=== PATIENT | female | born 1990 | race Caucasian/White ===

== ENCOUNTER 2017-07-19 20:56 | Inpatient (IN) | payer OTHER ==
[~2017-07-19] VITALS: Ht 162.6 cm; Wt 101.2 kg
[~2017-07-19 20:56] MED LIST: AMOXICILLIN500 M1 PO; DEPO IM; FLEXERIL10 MG PO; MOTRIN600 MG PO; Motrin PO; NORCO 5/3251 TABLET PO; NORCO 7.5/321 TABLET PO; PERCOCET 5/31 TABLET PO; PRENATAL TABLE1 EAC3 PO; ROBITUSSIN100 MG/5 M PO; ROXICODONE5 MG PO; TYLENOL WITH C1 EACH PO; VALIUM5 MG PO; ZOFRAN4 MG PO
[2017-07-19 23:36] LABS: HEMATOCRIT 44.8 % (36.0-46.0); HEMOGLOBIN 15.5 G/DL (11.9-15.5); MCH 30.8 PG (29.0-34.0); MCHC 34.6 G/DL (30.0-36.0); MCV 89.1 FL (83-99); PLATELET COUNT 284 K/uL (156-360); RBC DIS.WIDTH-SD 39.3 % (39-53); RED BLOOD COUNT 5.03 M/uL (3.80-5.20); WHITE BLOOD COUNT 14.1 K/uL (4.1-10.2)
[2017-07-19 23:47] LABS: ALBUMIN 4.3 g/dL (3.2-4.8); CHLORIDE 105 mEq/L (99-109); POTASSIUM 3.9 mEq/L (3.7-5.4); SODIUM 137 mEq/L (136-147)
[2017-07-19 23:49] LABS: GLUCOSE 113 mg/dL (70-99); TOTAL PROTEIN 7.6 g/dL (6.4-8.3)
[2017-07-19 23:51] LABS: TOTAL BILIRUBIN 2.4 mg/dL (0.0-1.0)
[2017-07-19 23:53] LABS: ALKALINE PHOSPHATASE 200 IU/L (3-129); CREATININE 0.7 mg/dL (0.6-1.3); GFR ESTIMATE (CALCULATED) > 59 mL/min/
[2017-07-19 23:54] LABS: UREA NITROGEN (BUN) 11 mg/dL (9-23)
[2017-07-19 23:55] LABS: AST (GOT) 340 IU/L (2-34)
[2017-07-19 23:56] LABS: ALT (GPT) 608 IU/L (3-49)
[2017-07-20 00:18] LABS: LIPASE 2275 U/L (1.0-51.0)
[2017-07-20 01:08] LABS: QUANTITATIVE HCG < 4.0 MIU/ML
[2017-07-20] MEDS ORDERED: MIDOL COMPLETE1 EACH PO (01:24)
[2017-07-20 01:27] LABS: APPEARANCE CLEAR ((CLEAR)); BILIRUBIN NEGATIVE; BLOOD SMALL; COLOR DK YELLOW ((YELLOW)); GLUCOSE (STRIP) NEGATIVE; KETONES 80; LEUKOCYTES NEGATIVE; NITRITE NEGATIVE; PROTEIN (STRIP) NEGATIVE
[2017-07-20 01:34] LABS: BACTERIA NONE SEEN /HPF; EPITHELIAL CELLS 2+ /HPF; MUCUS 1+ /LPF; UCUL ADDED? NO; WHITE BLOOD CELLS 0-5 /HPF (0-5)
[2017-07-20 01:44] LABS: SPECIFIC GRAVITY 1.075 (1.000-1.030)
[2017-07-20 02:31] LABS: ACETAMINOPHEN (TYLENOL) < 10 mcg/mL (10-30)
[2017-07-20 02:58] LABS: AMYLASE 443 IU/L (1-118)
[2017-07-20 05:49] VITALS: BP 112/63
[2017-07-20 06:52] LABS: HEMATOCRIT 42.8 % (36.0-46.0); HEMOGLOBIN 14.4 G/DL (11.9-15.5); MCH 30.2 PG (29.0-34.0); MCHC 33.6 G/DL (30.0-36.0); MCV 89.7 FL (83-99); PLATELET COUNT 284 K/uL (156-360); RBC DIS.WIDTH-CV 12.1 % (11.8-14.6); RBC DIS.WIDTH-SD 39.9 % (39-53); RED BLOOD COUNT 4.77 M/uL (3.80-5.20); WHITE BLOOD COUNT 10.8 K/uL (4.1-10.2)
[2017-07-20 07:28] VITALS: BP 114/58
[2017-07-20 15:03] LABS: BASOPHIL (%) 0.2 % (0-1); EOSINOPHIL (%) 0.2 % (0-5); HEMATOCRIT 44.2 % (36.0-46.0); HEMOGLOBIN 14.9 G/DL (11.9-15.5); IMMATURE GRANULOCYTE (%) 0.4 % (0.0-0.7); LYMPHOCYTE (%) 20.6 % (15-42); LYMPHOCYTE COUNT 2.1 K/uL (1.0-2.8); MCH 30.5 PG (29.0-34.0); MCHC 33.7 G/DL (30.0-36.0); MCV 90.6 FL (83-99); MONOCYTE (%) 4.6 % (3-12); MONOCYTE COUNT 0.5 K/uL (0-0.8); NEUTROPHIL COUNT 7.6 K/uL (1.8-6.4); PLATELET COUNT 256 K/uL (156-360); RBC DIS.WIDTH-CV 12.5 % (11.8-14.6); RBC DIS.WIDTH-SD 41.4 % (39-53); RED BLOOD COUNT 4.88 M/uL (3.80-5.20); WHITE BLOOD COUNT 10.2 K/uL (4.1-10.2)
[2017-07-20 15:16] LABS: ALBUMIN 3.5 G/DL (3.2-4.8); CHLORIDE 106 MEQ/L (99-109); POTASSIUM 3.8 MEQ/L (3.7-5.4); SODIUM 137 MEQ/L (136-147)
[2017-07-20 15:32] LABS: ALKALINE PHOSPHATASE 129 IU/L (3-129); ALT (GPT) 292 IU/L (3-49); AST (GOT) 103 IU/L (2-34); CREATININE 0.6 MG/DL (0.6-1.3); GFR ESTIMATE (CALCULATED) > 59 mL/min/; GLUCOSE 96 mg/dL (70-99); TOTAL PROTEIN 6.2 G/DL (6.4-8.3); UREA NITROGEN (BUN) 10 mg/dL (9-23)
[2017-07-20 15:41] VITALS: BP 120/57
[2017-07-20 16:28] LABS: LIPASE 733 U/L (1.0-51.0)
[2017-07-20 20:00] VITALS: BP 101/50
[2017-07-20 23:21] VITALS: BP 107/52
[2017-07-21 04:04] VITALS: BP 113/52
[2017-07-21 06:25] LABS: HEMATOCRIT 39.4 % (36.0-46.0); HEMOGLOBIN 13.3 G/DL (11.9-15.5); MCH 30.8 PG (29.0-34.0); MCHC 33.8 G/DL (30.0-36.0); MCV 91.2 FL (83-99); PLATELET COUNT 228 K/uL (156-360); RBC DIS.WIDTH-CV 12.2 % (11.8-14.6); RBC DIS.WIDTH-SD 41.1 % (39-53); RED BLOOD COUNT 4.32 M/uL (3.80-5.20); WHITE BLOOD COUNT 13.2 K/uL (4.1-10.2)
[2017-07-21 07:08] LABS: ALBUMIN 2.9 G/DL (3.2-4.8); ALKALINE PHOSPHATASE 100 IU/L (3-129); ALT (GPT) 168 IU/L (3-49); AMYLASE 98 IU/L (1-118); CHLORIDE 106 MEQ/L (99-109); CREATININE 0.5 MG/DL (0.6-1.3); DIRECT BILIRUBIN 0.5 mg/dL (0.0-0.3); GFR ESTIMATE (CALCULATED) > 59 mL/min/; GLUCOSE 80 mg/dL (70-99); LIPASE 363 U/L (1.0-51.0); POTASSIUM 3.4 MEQ/L (3.7-5.4); SODIUM 137 MEQ/L (136-147); TOTAL BILIRUBIN 1.1 MG/DL (0.0-1.0); UREA NITROGEN (BUN) 8 mg/dL (9-23)
[2017-07-21 07:11] LABS: AST (GOT) 43 IU/L (2-34); TOTAL PROTEIN 4.9 G/DL (6.4-8.3)
[2017-07-21 07:50] VITALS: BP 115/57
[2017-07-21 09:56] VITALS: BP 127/87
[2017-07-21 15:39] VITALS: BP 149/78
[2017-07-21 20:24] VITALS: BP 130/60
[2017-07-21 23:34] VITALS: BP 105/51
[2017-07-22 04:07] VITALS: BP 99/49
[2017-07-22 05:53] LABS: BASOPHIL (%) 0.2 % (0-1); EOSINOPHIL (%) 0.6 % (0-5); EOSINOPHIL COUNT 0.1 K/uL (0-0.3); HEMATOCRIT 32.3 % (36.0-46.0); HEMOGLOBIN 10.7 G/DL (11.9-15.5); IMMATURE GRANULOCYTE (%) 0.9 % (0.0-0.7); LYMPHOCYTE (%) 17.8 % (15-42); LYMPHOCYTE COUNT 2.3 K/uL (1.0-2.8); MCH 30.1 PG (29.0-34.0); MCHC 33.1 G/DL (30.0-36.0); MCV 90.7 FL (83-99); MONOCYTE (%) 5.7 % (3-12); MONOCYTE COUNT 0.7 K/uL (0-0.8); NEUTROPHIL (%) 74.8 % (45-76); NEUTROPHIL COUNT 9.5 K/uL (1.8-6.4); PLATELET COUNT 189 K/uL (156-360); RBC DIS.WIDTH-CV 12.2 % (11.8-14.6); RBC DIS.WIDTH-SD 40.8 % (39-53); RED BLOOD COUNT 3.56 M/uL (3.80-5.20); WHITE BLOOD COUNT 12.7 K/uL (4.1-10.2)
[2017-07-22 08:30] VITALS: BP 124/67
[2017-07-22 09:23] LABS: ALBUMIN 2.4 G/DL (3.2-4.8); ALT (GPT) 99 IU/L (3-49); AST (GOT) 25 IU/L (2-34); CHLORIDE 107 MEQ/L (99-109); CREATININE 0.5 MG/DL (0.6-1.3); GFR ESTIMATE (CALCULATED) > 59 mL/min/; GLUCOSE 68 mg/dL (70-99); POTASSIUM 3.4 MEQ/L (3.7-5.4); SODIUM 136 MEQ/L (136-147); TOTAL PROTEIN 4.4 G/DL (6.4-8.3); UREA NITROGEN (BUN) 6 mg/dL (9-23)
[2017-07-22 09:24] LABS: ALKALINE PHOSPHATASE 66 IU/L (3-129); TOTAL BILIRUBIN 1.4 MG/DL (0.0-1.0)
[2017-07-22 09:49] LABS: LIPASE 234 U/L (1.0-51.0)
[2017-07-22 12:00] VITALS: BP 104/51
[2017-07-22 15:27] LABS: C DIFF TOXIN POSITIVE (NEGATIVE)
[2017-07-22 16:30] VITALS: BP 110/58
[2017-07-22 19:12] VITALS: BP 126/66
[2017-07-23 00:21] VITALS: BP 90/48
[2017-07-23 05:16] VITALS: BP 127/55
[2017-07-23 05:37] LABS: HEMATOCRIT 33.5 % (36.0-46.0); HEMOGLOBIN 11.4 G/DL (11.9-15.5); MCH 31.1 PG (29.0-34.0); MCV 91.3 FL (83-99); PLATELET COUNT 236 K/uL (156-360); RBC DIS.WIDTH-CV 12.3 % (11.8-14.6); RBC DIS.WIDTH-SD 41.2 % (39-53); RED BLOOD COUNT 3.67 M/uL (3.80-5.20); WHITE BLOOD COUNT 12.6 K/uL (4.1-10.2)
[2017-07-23 06:10] LABS: ALBUMIN 2.8 G/DL (3.2-4.8); ALKALINE PHOSPHATASE 74 IU/L (3-129); ALT (GPT) 74 IU/L (3-49); AST (GOT) 23 IU/L (2-34); CHLORIDE 107 MEQ/L (99-109); CREATININE 0.4 MG/DL (0.6-1.3); GFR ESTIMATE (CALCULATED) > 59 mL/min/; GLUCOSE 72 mg/dL (70-99); POTASSIUM 3.6 MEQ/L (3.7-5.4); SODIUM 135 MEQ/L (136-147); UREA NITROGEN (BUN) 3 mg/dL (9-23)
[2017-07-23 06:13] LABS: TOTAL BILIRUBIN 0.8 MG/DL (0.0-1.0); TOTAL PROTEIN 5.2 G/DL (6.4-8.3)
[2017-07-23 08:27] VITALS: BP 101/47
[2017-07-23 12:15] VITALS: BP 126/70
[2017-07-23 14:06] LABS: LIPASE 157 U/L (1.0-51.0)
[2017-07-23 14:07] LABS: AMYLASE 53 IU/L (1-118)
[2017-07-23 16:44] VITALS: BP 103/55
[2017-07-23 19:25] VITALS: BP 114/76
[2017-07-24 00:11] VITALS: BP 107/59
[2017-07-24 05:00] VITALS: BP 98/61
[2017-07-24 05:22] LABS: HEMATOCRIT 31.1 % (36.0-46.0); HEMOGLOBIN 10.5 G/DL (11.9-15.5); MCH 30.1 PG (29.0-34.0); MCHC 33.8 G/DL (30.0-36.0); MCV 89.1 FL (83-99); PLATELET COUNT 259 K/uL (156-360); RBC DIS.WIDTH-CV 12.2 % (11.8-14.6); RBC DIS.WIDTH-SD 39.8 % (39-53); RED BLOOD COUNT 3.49 M/uL (3.80-5.20); WHITE BLOOD COUNT 10.2 K/uL (4.1-10.2)
[2017-07-24 05:47] LABS: ALBUMIN 2.8 G/DL (3.2-4.8); ALKALINE PHOSPHATASE 67 IU/L (3-129); ALT (GPT) 57 IU/L (3-49); AST (GOT) 21 IU/L (2-34); CHLORIDE 107 MEQ/L (99-109); CREATININE 0.4 MG/DL (0.6-1.3); GFR ESTIMATE (CALCULATED) > 59 mL/min/; GLUCOSE 73 mg/dL (70-99); LIPASE 201 U/L (1.0-51.0); POTASSIUM 3.3 MEQ/L (3.7-5.4); SODIUM 137 MEQ/L (136-147); TOTAL PROTEIN 5.3 G/DL (6.4-8.3); UREA NITROGEN (BUN) 3 mg/dL (9-23)
[2017-07-24 05:50] LABS: TOTAL BILIRUBIN 0.6 MG/DL (0.0-1.0)
[2017-07-24 08:30] VITALS: BP 114/66
[2017-07-24 12:00] VITALS: BP 141/74
[2017-07-24 19:30] VITALS: BP 107/68
[2017-07-25 00:15] VITALS: BP 104/58
[2017-07-25 05:00] VITALS: BP 119/66
[2017-07-25 05:55] LABS: HEMATOCRIT 31.2 % (36.0-46.0); HEMOGLOBIN 10.2 G/DL (11.9-15.5); MCH 29.8 PG (29.0-34.0); MCHC 32.7 G/DL (30.0-36.0); MCV 91.2 FL (83-99); PLATELET COUNT 277 K/uL (156-360); RBC DIS.WIDTH-CV 12.5 % (11.8-14.6); RBC DIS.WIDTH-SD 41.8 % (39-53); RED BLOOD COUNT 3.42 M/uL (3.80-5.20); WHITE BLOOD COUNT 8.8 K/uL (4.1-10.2)
[2017-07-25 06:40] LABS: ALBUMIN 2.8 G/DL (3.2-4.8); ALKALINE PHOSPHATASE 57 IU/L (3-129); ALT (GPT) 40 IU/L (3-49); AST (GOT) 14 IU/L (2-34); CHLORIDE 112 MEQ/L (99-109); CREATININE 0.4 MG/DL (0.6-1.3); GFR ESTIMATE (CALCULATED) > 59 mL/min/; GLUCOSE 98 mg/dL (70-99); MAGNESIUM 1.9 mg/dl (1.3-2.7); POTASSIUM 4.7 MEQ/L (3.7-5.4); SODIUM 142 MEQ/L (136-147); TOTAL BILIRUBIN 0.3 MG/DL (0.0-1.0); TOTAL PROTEIN 5.6 G/DL (6.4-8.3); UREA NITROGEN (BUN) 4 mg/dL (9-23)
[2017-07-25 08:00] VITALS: BP 119/68
[2017-07-25 13:00] VITALS: BP 104/58
[2017-07-25 17:00] VITALS: BP 115/67
[2017-07-25 20:30] VITALS: BP 95/65
[2017-07-26] VITALS (7 sets, daily range): BP systolic 98–147; BP diastolic 56–82
[2017-07-26 06:16] LABS: ALBUMIN 2.6 G/DL (3.2-4.8); ALKALINE PHOSPHATASE 51 IU/L (3-129); ALT (GPT) 31 IU/L (3-49); AST (GOT) 12 IU/L (2-34); CHLORIDE 111 MEQ/L (99-109); CREATININE 0.4 MG/DL (0.6-1.3); DIRECT BILIRUBIN 0.1 mg/dL (0.0-0.3); GFR ESTIMATE (CALCULATED) > 59 mL/min/; GLUCOSE 127 mg/dL (70-99); MAGNESIUM 1.9 mg/dl (1.3-2.7); PHOSPHORUS 2.9 mg/dL (2.5-4.9); POTASSIUM 4.2 MEQ/L (3.7-5.4); PREALBUMIN 8.2 mg/dL (10-40); SODIUM 142 MEQ/L (136-147); TOTAL BILIRUBIN 0.3 MG/DL (0.0-1.0); TOTAL PROTEIN 4.9 G/DL (6.4-8.3); TRIGLYCERIDES 104 MG/DL (Normal: <150); UREA NITROGEN (BUN) 11 mg/dL (9-23)
[2017-07-26 06:24] LABS: BASOPHIL (%) 0.3 % (0-1); EOSINOPHIL (%) 0.4 % (0-5); HEMATOCRIT 28.6 % (36.0-46.0); HEMOGLOBIN 9.5 G/DL (11.9-15.5); IMMATURE GRANULOCYTE (%) 1.5 % (0.0-0.7); LYMPHOCYTE (%) 29.3 % (15-42); LYMPHOCYTE COUNT 2.1 K/uL (1.0-2.8); MCH 30.2 PG (29.0-34.0); MCHC 33.2 G/DL (30.0-36.0); MCV 90.8 FL (83-99); MONOCYTE (%) 5.1 % (3-12); MONOCYTE COUNT 0.4 K/uL (0-0.8); NEUTROPHIL (%) 63.4 % (45-76); NEUTROPHIL COUNT 4.6 K/uL (1.8-6.4); PLATELET COUNT 290 K/uL (156-360); RBC DIS.WIDTH-CV 12.9 % (11.8-14.6); RBC DIS.WIDTH-SD 42.7 % (39-53); RED BLOOD COUNT 3.15 M/uL (3.80-5.20); WHITE BLOOD COUNT 7.3 K/uL (4.1-10.2)
[2017-07-27 00:06] VITALS: BP 115/59
[2017-07-27 05:07] VITALS: BP 101/55
[2017-07-27 06:05] LABS: CHLORIDE 105 MEQ/L (99-109); CREATININE 0.3 MG/DL (0.6-1.3); GFR ESTIMATE (CALCULATED) > 59 mL/min/; GLUCOSE 99 mg/dL (70-99); MAGNESIUM 1.7 mg/dl (1.3-2.7); PHOSPHORUS 3.7 mg/dL (2.5-4.9); POTASSIUM 3.8 MEQ/L (3.7-5.4); SODIUM 139 MEQ/L (136-147); UREA NITROGEN (BUN) 11 mg/dL (9-23)
[2017-07-27 08:14] VITALS: BP 126/68
[2017-07-27 17:55] VITALS: BP 101/60
[2017-07-27 19:26] VITALS: BP 102/58
[2017-07-28 00:34] VITALS: BP 89/53
[2017-07-28 04:24] VITALS: BP 117/67
[2017-07-28 07:43] VITALS: BP 118/86
[2017-07-28] MEDS ORDERED: OXYCONTIN10 MG PO (12:33)
[2017-07-28] MEDS ORDERED: VANCOMYCIN125 MG/2.5 PO (12:33)
[2017-07-28] MEDS ORDERED: OXYCODONE-APAP1 EACH PO (12:33)
[2017-07-28] MEDS ORDERED: FAMOTIDINE20 MG PO (12:35)
[2017-07-28] MEDS ORDERED: POLYETHYLENE GL17 GM PO (12:35)
[2017-07-28] MEDS ORDERED: ZOFRAN ODT8 MG PO (12:36)
[2017-07-28] MEDS ORDERED: COLACE100 MG PO (12:38)
[2017-07-28 12:57] LABS: CHLORIDE 102 MEQ/L (99-109); CREATININE 0.4 MG/DL (0.6-1.3); GFR ESTIMATE (CALCULATED) > 59 mL/min/; GLUCOSE 95 mg/dL (70-99); PHOSPHORUS 4.9 mg/dL (2.5-4.9); POTASSIUM 4.4 MEQ/L (3.7-5.4); SODIUM 138 MEQ/L (136-147); UREA NITROGEN (BUN) 8 mg/dL (9-23)
[2017-07-28 13:02] LABS: MAGNESIUM 2.2 mg/dl (1.3-2.7)
[2017-07-28 15:49] VITALS: BP 123/78
== END 2017-07-28 17:34 | disposition home health service (06) | DRG 423 ==
LOC: EME 20:56 → 4EAST 07-20 03:58 → 2EASTP 07-20 03:58 → EDOF 07-20 03:58 → ENRESERV 07-20 04:03 → 2EASTP 07-20 05:26 → ENRESERV 07-21 08:16 → 4EAST 07-21 09:22 → ENRESERV 07-26 16:11 → 5SOUTH 07-26 17:46
PROVIDERS: Family Medicine; Hospitalist; Internal Medicine Gastroenterology; Physician Assistant
PROC: 00HU33Z Insertion of Infusion Device into Spinal Canal, Percutaneous Approach (ICD-10-PCS; principal; 2017-07-21)
PROC: 3E0R3BZ Introduction of Anesthetic Agent into Spinal Canal, Percutaneous Approach (ICD-10-PCS; principal; 2017-07-21)
PROC: 0DNU4ZZ Release Omentum, Percutaneous Endoscopic Approach (ICD-10-PCS; 2017-07-24)
PROC: 0W9G40Z Drainage of Peritoneal Cavity with Drainage Device, Percutaneous Endoscopic Approach (ICD-10-PCS; 2017-07-24)
PROC: 3E0436Z Introduction of Nutritional Substance into Central Vein, Percutaneous Approach (ICD-10-PCS; 2017-07-25)
PROC: 05HY33Z Insertion of Infusion Device into Upper Vein, Percutaneous Approach (ICD-10-PCS; 2017-07-25)
DX: K85.10 Biliary acute pancreatitis without necrosis or infection (principal); K65.1 Peritoneal abscess; A04.72 Enterocolitis due to Clostridium difficile, not specified as recurrent; R18.8 Other ascites; K66.0 Peritoneal adhesions (postprocedural) (postinfection); K82.8 Other specified diseases of gallbladder; E44.0 Moderate protein-calorie malnutrition; R74.0 Nonspecific elevation of levels of transaminase and lactic acid dehydrogenase [LDH]; K86.1 Other chronic pancreatitis; R94.5 Abnormal results of liver function studies; E87.6 Hypokalemia; K80.20 Calculus of gallbladder without cholecystitis without obstruction; E66.01 Morbid (severe) obesity due to excess calories; Z68.41 Body mass index [BMI] 40.0-44.9, adult; K42.9 Umbilical hernia without obstruction or gangrene; M46.1 Sacroiliitis, not elsewhere classified; F17.210 Nicotine dependence, cigarettes, uncomplicated; Z86.73 Personal history of transient ischemic attack (TIA), and cerebral infarction without residual deficits
CPT/HCPCS: 71046; 74177; 74183; 76705; 78227; 80048; 80053; 80076; 81003; 82150; 82248; 83605; 83690; 83735; 84100; 84132 91; 84134; 84478; 84630 90; 84702; 85025; 85027; 87040; 87070; 87075; 87177; 87205; 87329; 87493; 87506; 99202; 99281; 99285; A9537; C9113; G0480; J0330; J0690; J1100; J1170; J1650; J1885; J1956; J2250; J2270; J2405; J2543; J3010; J3480; J7030; J7050; S0020; S0028

== ENCOUNTER 2017-09-04 08:08 | Day surgery (SDC) | payer OTHER ==
[~2017-09-04] VITALS: Ht 162.6 cm; Wt 90.0 kg
[~2017-09-04 08:08] MED LIST changes: +COLACE100 MG PO; +FAMOTIDINE20 MG PO; +MIDOL COMPLETE1 EACH PO; +NICODERM CQ1 EAC2 TD; +OXYCODONE-APAP1 EACH PO; +OXYCONTIN10 MG PO; +POLYETHYLENE GL17 GM PO; +PROBIOTIC1 EAC2 PO; +VANCOMYCIN125 MG/2.5 PO; +ZOFRAN ODT8 MG PO
[2017-09-04 08:43] VITALS: BP 107/59
[2017-09-04] MEDS ORDERED: OXYCONTIN10 MG PO (11:24)
[2017-09-04] MEDS ORDERED: COLACE100 MG PO (11:24)
[2017-09-04] MEDS ORDERED: ONDANSETRON HCL8 MG PO (11:24)
[2017-09-04 12:40] VITALS: BP 107/54
[2017-09-04 14:07] VITALS: BP 108/61
== END 2017-09-04 14:00 | disposition home or self-care (01) ==
LOC: SDC 08:08
DX: K80.10 Calculus of gallbladder with chronic cholecystitis without obstruction (principal); F17.200 Nicotine dependence, unspecified, uncomplicated; E66.9 Obesity, unspecified; Z68.34 Body mass index [BMI] 34.0-34.9, adult
CPT/HCPCS: 74300; 88304; J0690; J1100; J1170; J1885; J2250; J2405; J2710; J2765; S0020

== ENCOUNTER 2017-09-10 08:20 | Emergency (ER) | payer OTHER ==
[~2017-09-10] VITALS: Ht 162.6 cm; Wt 88.6 kg
[~2017-09-10 08:20] MED LIST changes: +ONDANSETRON HCL8 MG PO
[2017-09-10 09:02] LABS: HEMATOCRIT 40.5 % (36.0-46.0); MCH 30.7 PG (29.0-34.0); MCHC 34.6 G/DL (30.0-36.0); MCV 88.8 FL (83-99); PLATELET COUNT 319 K/uL (156-360); RBC DIS.WIDTH-CV 12.8 % (11.8-14.6); RBC DIS.WIDTH-SD 41.9 % (39-53); WHITE BLOOD COUNT 8.4 K/uL (4.1-10.2)
[2017-09-10 09:03] LABS: RED BLOOD COUNT 4.56 M/uL (3.80-5.20)
[2017-09-10 09:12] LABS: ALBUMIN 4.2 g/dL (3.2-4.8); CHLORIDE 105 mEq/L (99-109); POTASSIUM 4.3 mEq/L (3.7-5.4); SODIUM 138 mEq/L (136-147)
[2017-09-10 09:14] LABS: GLUCOSE 100 mg/dL (70-99)
[2017-09-10 09:15] LABS: TOTAL PROTEIN 7.6 g/dL (6.4-8.3)
[2017-09-10 09:16] LABS: TOTAL BILIRUBIN 0.5 mg/dL (0.0-1.0)
[2017-09-10 09:17] LABS: APPEARANCE CLEAR ((CLEAR)); BILIRUBIN NEGATIVE; BLOOD NEGATIVE; COLOR YELLOW ((YELLOW)); GLUCOSE (STRIP) NEGATIVE; KETONES NEGATIVE; LEUKOCYTES NEGATIVE; NITRITE NEGATIVE; PROTEIN (STRIP) NEGATIVE; SPECIFIC GRAVITY 1.011 (1.000-1.030); UCUL ADDED? NO; UROBILINOGEN 0.2 MG/DL (0.2-1.0)
[2017-09-10 09:18] LABS: ALKALINE PHOSPHATASE 89 IU/L (3-129); CREATININE 0.6 mg/dL (0.6-1.3); GFR ESTIMATE (CALCULATED) > 59 mL/min/
[2017-09-10 09:19] LABS: UREA NITROGEN (BUN) 6 mg/dL (9-23)
[2017-09-10 09:20] LABS: AST (GOT) 16 IU/L (2-34)
[2017-09-10 09:21] LABS: ALT (GPT) 32 IU/L (3-49)
[2017-09-10 09:27] LABS: QUANTITATIVE HCG < 4.0 MIU/ML
[2017-09-10 10:18] LABS: LIPASE 74 U/L (1.0-51.0)
[2017-09-10 12:46] VITALS: BP 98/59
== END 2017-09-10 13:07 | disposition home or self-care (01) ==
LOC: EME 08:20
DX: R10.9 Unspecified abdominal pain (principal); R11.2 Nausea with vomiting, unspecified; R51 Headache; R53.1 Weakness; Z90.49 Acquired absence of other specified parts of digestive tract; Z86.73 Personal history of transient ischemic attack (TIA), and cerebral infarction without residual deficits; F17.200 Nicotine dependence, unspecified, uncomplicated
CPT/HCPCS: 71045; 80053; 81003; 83690; 84702; 85027; 99281; 99284; J1885; J2765; J7030